=== PATIENT | male | born 2000 | race Hispanic/Latino ===

== ENCOUNTER 2019-02-24 15:01 | Emergency (ER) | payer OTHER, SELFPAY ==
[~2019-02-24 15:01] MED LIST: Iopamidol 370 76% 100 ML VIAL ONE; Sodium Chloride 0.9% 1,000 ML BAG ONE
[2019-02-24 15:51] LABS: #Basophils 0.1 thou/uL (0.0-0.2); #Eosinphils 0.2 thou/uL (0.0-0.7); #Lymphocytes 1.5 thou/uL (1.20-3.40); #Monocytes 0.6 thou/uL (0.11-0.59); #Neutrophils 4.6 thou/uL (1.40-6.50); %Basophils 1.5 % (0.0-1.0); %Eosinophils 2.2 % (0.0-10.0); %Monocytes 8.9 % (0.0-4.0); %Neutrophils 65.4 % (31.0-61.0); Hemoglobin 13.9 g/dL (14.0-18.0); Mean Corpuscular HGB CONC 32.4 g/dL (32.0-36.0); Mean Corpuscular Hemoglobin 29.7 pg (25.0-35.0); Mean Corpuscular Volume 91.7 fL (78.0-98.0); Mean Platelet Volume 9.4 fL (7.4-10.4); Platelet Count 195 thou/uL (130-400); RBC Distribution Width 11.3 % (11.5-14.5); Red Blood Cell (RBC) Count 4.68 mill/uL (4.00-5.20)
[2019-02-24 16:07] LABS: ALT (SGPT) 22 U/L (8-55); AST (SGOT) 17 U/L (5-34); Alcohol Less than 10 mg/dL (Less than 10); Alkaline Phosphatase 53 U/L (Less than 750); Anion Gap 9 mmol/L (10-20); BUN (Urea Nitrogen) 12 mg/dL (8.9-20.6); Bilirubin, Total 0.4 mg/dL (0.2-1.2); Calc. Creatinine Clearance 0 mL/min (70-130); Calcium 8.7 mg/dL (7.8-10.44); Carbon Dioxide 27 mmol/L (22-29); Chloride 107 mmol/L (98-107); Estimated GFR-MDRD Greater than 90; Glucose 99 mg/dL (70-105); Lipase 25 U/L (8-78); Potassium 3.7 mmol/L (3.5-5.1); Sodium 139 mmol/L (136-145)
--- NOTE | 2019-02-24 16:24 | CT ---
CT Cervical Spine WO Con Indication: Pain/Injury COMPARISON: None FINDINGS: Acute fracture/subluxation: None Spinal alignment: No acute malalignment. Reversal of normal cervical curvature may be positional in e tiology. Vertebral body heights: Maintained. Cervical spine degenerative change: None of significance. Incidental note of mildly prominent lymph nodes of the cervical chains. IMPRESSION: No acute osseous abnormality. Mild prominence of bilateral cervical chain lymph nodes. Correlate with clinical assessment.
--- NOTE | 2019-02-24 16:26 | CT ---
EXAM: Chest, Abdomen and Pelvic CT scan with contrast: CT thoracic spine with contrast with 3-D volume rendering CT lumbar spine with contrast with 3-D volume rendering HISTORY: Pain, injury COMPARISON: None FINDINGS: Mild subpleural bilateral pulmonary opacities may relate to atelectasis. No pleural effusion. No pneumothorax. No adenopathy. No acute process of the mediastinal structures. Liver: Unremarkable. Gallbladder:Unremarkable. Pancreas:Unremarkable Spleen:Unremarkable. Adrenal glands:Unremarkable. Kidneys:No renal calculus or acute obstruction.No solid or cystic mass. Bowel: No acute post traumatic bowel injury is identified. Scattered air-filled small bowel is presen t with mild ectasia of distal bowel at the low abdomen/pelvis, nonspecific. Urinary Bladder: Moderate distention Adenopathy:No adenopathy within the abdomen or pelvis. Free Air: No free air. Ascites: No ascites. Osseous structures: No acute osseous abnormalities. IMPRESSION: No acute posttraumatic sequela. Transcribed Date/Time: 02/24/2019 4:32 PM
--- NOTE | 2019-02-24 16:29 | RAD ---
XR Wrist 3 Lt View STANDARD: 02/24/2019 3:32 PM CLINICAL INDICATION: Injury, pain COMPARISON: None. FINDINGS: Fracture:No fracture. Arthropathy:None of significance. Incidental findings:IV catheter overlies the medial aspect of the hand and wrist IMPRESSION: 1. No acute osseous abnormality.
--- NOTE | 2019-02-24 16:46 | CT ---
Exam: Head CT without contrast HISTORY: Trauma. Pain. COMPARISON: none FINDINGS: Hemorrhage: No intraparenchymal hemorrhage or extra-axial hematoma. Brain parenchyma: Cortical castro-white matter differentiation is preserved. No mass effect or midline shift. Basilar cisterns are patent. Ventricular system: Ventricles and sulci are patent and symmetric. Calvarium: Intact. Sinuses and mastoid air cells: Adequate aeration. IMPRESSION: No intracranial posttraumatic sequelae.
== END 2019-02-24 18:45 | disposition home or self-care (01) ==
LOC: MADERS 15:01
DX: S16.1XXA Strain of muscle, fascia and tendon at neck level, initial encounter (principal); S39.012A Strain of muscle, fascia and tendon of lower back, initial encounter; V43.52XA Car driver injured in collision with other type car in traffic accident, initial encounter
CPT/HCPCS: 36415; 70450; 71260; 72125; 74177; 80053; 80307; 83690; 85025; J7050; Q9967